=== PATIENT | male | born 2000 | race African-American/Black ===

== ENCOUNTER 2022-09-03 17:54 | Emergency (ER) | payer OTHER ==
[2022-09-03 18:04] VITALS: RESP 18; BMI 21.1
[2022-09-03] MEDS ORDERED: morphine CARPU-JECT 4 MG/1 ML DISP.SYRIN IVPUSH ONE (18:43)
[2022-09-03] MEDS ORDERED: morphine SULFATE 4 MG/ML VIAL ONE (18:47)
[2022-09-03] MEDS ORDERED: LIDOCAINE HCL 1%, 10 MG/ML (10ML VIAL) MDV ONE (19:15)
[2022-09-03] MEDS ORDERED: LIDOCAINE HCL 1%, 10 MG/ML (50 mL VIAL) SQ ONE (19:17)
[2022-09-03 19:33] VITALS: BP 122/77; PULSE 77; TEMP 99.1
[2022-09-03] MEDS ORDERED: IBUPROFEN 400 MG TABLET (FP) PO ONE ×2 (19:58→20:05)
[2022-09-03] MEDS ORDERED: morphine CARPU-JECT 2 MG/1 ML DISP.SYRIN IVPUSH ONE (20:25)
[2022-09-03] MEDS ORDERED: MIDAZOLAM HCL 2 MG/2 ML SINGLE DOSE VIAL IVPUSH ONE (20:26)
[2022-09-03] MEDS ORDERED: MIDAZOLAM HCL 2 MG/2 ML SINGLE DOSE VIAL ONE (20:28)
== END 2022-09-03 22:15 | disposition home or self-care (01) ==
LOC: JER 17:54
PROC: 3E033GC Introduction of Other Therapeutic Substance into Peripheral Vein, Percutaneous Approach (ICD-10-PCS; principal; 2022-09-03)
PROC: 3E033GC Introduction of Other Therapeutic Substance into Peripheral Vein, Percutaneous Approach (ICD-10-PCS; 2022-09-03)
PROC: 3E033GC Introduction of Other Therapeutic Substance into Peripheral Vein, Percutaneous Approach (ICD-10-PCS; 2022-09-03)
PROC: 0RQ Upper Joints, Repair (ICD-10-PCS; 2022-09-03)
DX: S43.022A Posterior subluxation of left humerus, initial encounter (principal); S60.931A Unspecified superficial injury of right thumb, initial encounter; M25.512 Pain in left shoulder; Y04.0XXA Assault by unarmed brawl or fight, initial encounter; Y93.9 Activity, unspecified; Y92.9 Unspecified place or not applicable
CPT/HCPCS: 73030-TC-LT-FY; 73130-TC-RT-FY; 73200-TC-RT; 99284-25

== ENCOUNTER 2023-08-20 23:55 | Emergency (ER) | payer OTHER ==
[2023-08-21 00:08] VITALS: BP 106/68; PULSE 103; RESP 18; TEMP 99; BMI 21.1
[2023-08-21] MEDS ORDERED: LIDOCAINE 2.5%/PRILOCAINE 2.5% (5 Gram/TUBE) TP ONE ×2 (00:34→00:37)
[2023-08-21] MEDS ORDERED: ACETAMINOPHEN 500 MG TABLET (FP) ONE (00:36)
[2023-08-21] MEDS ORDERED: ACETAMINOPHEN 325 MG TABLET (FP) ONE (00:36)
[2023-08-21] MEDS: LIDOCAINE 2.5%/PRILOCAINE 2.5% 30 GRAM TUBE TP ONE (00:38)
[2023-08-21] MEDS: ACETAMINOPHEN 500 MG TABLET (FP) PO ONE (00:38)
[2023-08-21] MEDS ORDERED: DIPHTH,PERTUSS(ACELL),TET 0.5 ML DISP.SYRIN IM ONE (00:39)
[2023-08-21] MEDS: DIPHTH,PERTUSS(ACELL),TET 0.5 ML DISP.SYRIN IM ONE (00:43)
== END 2023-08-21 01:45 | disposition home or self-care (01) ==
LOC: JER 23:55
PROC: 0HQ0XZZ Repair Scalp Skin, External Approach (ICD-10-PCS; principal; 2023-08-20)
PROC: 3E0234Z Introduction of Serum, Toxoid and Vaccine into Muscle, Percutaneous Approach (ICD-10-PCS; 2023-08-21)
DX: S01.01XA Laceration without foreign body of scalp, initial encounter (principal); Y04.0XXA Assault by unarmed brawl or fight, initial encounter; Z23 Encounter for immunization
CPT/HCPCS: 12001-25; 70450-TC; 90471; 90715; 99284-25

== ENCOUNTER 2023-09-03 16:10 | Emergency (ER) | payer OTHER ==
[2023-09-03 16:18] VITALS: BP 116/64; PULSE 75; RESP 16; TEMP 98.6; BMI 20.5
== END 2023-09-03 17:14 | disposition home or self-care (01) ==
LOC: JERFT 16:10
DX: Z48.02 Encounter for removal of sutures (principal)
CPT/HCPCS: 99281-25